=== PATIENT | female | born 1955 | race Caucasian/White ===

== ENCOUNTER → 2020-06-27 | Outpatient (CLI) | payer OTHER ==
[~2020-06-27] MED LIST: AMOCLA875 PO; HYDACE5 PO
[2020-06-30 09:09] LABS: HPV 16 Negative (Negative); HPV 18 Negative (Negative); HPV OTHER HR TYPES Negative (Negative)
== END | disposition home or self-care (01) ==
LOC: LAB SHORT 17:36 → LAB 17:36
PROVIDERS: Internal Medicine
DX: Z12.4 Encounter for screening for malignant neoplasm of cervix (principal)
CPT/HCPCS: 87624; G0145

== ENCOUNTER 2024-04-05 09:36 | Day surgery (SDC) | payer MEDICARE ==
[~2024-04-05] VITALS: Ht 160 cm; Wt 86.6 kg
[~2024-04-05 09:36] MED LIST changes: +Atropine Sulfate 0.1 MG/ML 10ML SYR ONE; +Glycopyrrolate 0.2 MG/ML 1MLVIAL ONE; +Lactated Ringer's 1,000 ML IV ONE; +Lidocaine 2% 5 ML SDV ONE; +Lidocaine HCl/Pf 1% 5 ML VIAL ONE; +Methylene Blue 1% 100 MG/10 ML VIAL ONE; +Ondansetron HCl 2 MG / ML 2ML Vial ONE; +ePHEDrine Sulfate 50 MG/ML 1ML Injection ONE; +propofoL 50 ML IV ONE
[2024-04-05] MEDS ORDERED: VITAMIN D5000 UNIT (11:27)
[2024-04-05] MEDS ORDERED: VITAMIN B125000 MC1 (11:28)
[2024-04-05] MEDS ORDERED: FERROUS SULFAT325 M3 (11:29)
[2024-04-05] MEDS ORDERED: POLY500 (11:30)
[2024-04-05] MEDS ORDERED: PROBIOTIC1 EA14 (11:30)
[2024-04-05] MEDS ORDERED: CALCIUM 600 +1 EA11 (11:30)
[2024-04-05] MEDS ORDERED: MULVITA (11:30)
[2024-04-05] MEDS ORDERED: ZINC15 (11:31)
[2024-04-05] MEDS ORDERED: BEET ROOT-TART1 EACH (11:31)
[2024-04-05] MEDS ORDERED: Lactated Ringer's 1,000 ML IV ONE (12:38)
[2024-04-05] MEDS ORDERED: Ondansetron HCl 2 MG / ML 2ML Vial ONE (13:26)
[2024-04-05 14:19] VITALS: BP 124/76
== END 2024-04-05 14:21 | disposition home or self-care (01) ==
LOC: ORSCSDS 09:36
PROVIDERS: Surgery
PROC: 0DBK8ZX Excision of Ascending Colon, Via Natural or Artificial Opening Endoscopic, Diagnostic (ICD-10-PCS; principal; 2024-04-05 11:00)
PROC: 0DBN8ZX Excision of Sigmoid Colon, Via Natural or Artificial Opening Endoscopic, Diagnostic (ICD-10-PCS; principal; 2024-04-05 11:00)
PROC: 0DBM8ZX Excision of Descending Colon, Via Natural or Artificial Opening Endoscopic, Diagnostic (ICD-10-PCS; principal; 2024-04-05 11:00)
DX: K92.1 Melena (principal); K64.4 Residual hemorrhoidal skin tags; D12.2 Benign neoplasm of ascending colon; D12.4 Benign neoplasm of descending colon; D12.5 Benign neoplasm of sigmoid colon; K64.1 Second degree hemorrhoids; G80.9 Cerebral palsy, unspecified; E78.5 Hyperlipidemia, unspecified; R73.9 Hyperglycemia, unspecified; E66.9 Obesity, unspecified; Z68.34 Body mass index [BMI] 34.0-34.9, adult
CPT/HCPCS: 88305; J0461; J2003; J2405; J2704; J7120; Q9968